=== PATIENT | female | born 1980 | race African-American/Black ===

== ENCOUNTER 2022-02-25 16:43 | Emergency (ER) | payer BC, MEDICAID, OTHER ==
[~2022-02-25] VITALS: Ht 177.8 cm; Wt 86.2 kg
[2022-02-25 16:49] VITALS: BP 139/89
== END 2022-02-25 20:02 | disposition left against medical advice (07) ==
LOC: ER 16:43
DX: R42 Dizziness and giddiness (principal); M54.9 Dorsalgia, unspecified; Z53.21 Procedure and treatment not carried out due to patient leaving prior to being seen by health care provider